=== PATIENT | male | born 1995 | race American Indian/Alaskan Native ===

== ENCOUNTER 2016-08-15 13:21 | Emergency (ER) | payer MEDICAID, OTHER ==
--- NOTE | 2016-08-15 17:46 | Emergency Department Report ---
HPI - General Chief Complaint: Eye Problems Time Seen by Provider: 08/15/16 17:01 - HPI HPI: 20-year-old male presents today with blurred vision of left eye since yesterday. Patient states that he was hit by another player's hands to his left eyebrow playing basketball yesterday. Positive for minimal tearing. Denies any pain, foreign body sensation or discharge. Patient states that he usually wears contact lenses but does not have his eyeglasses or contact lenses at this time. Denies fever, chills, nausea, vomiting, chest pain, shortness of breath, abdominal pain. ED Past Medical Hx - Past Medical History Previous Medical History?: No - Surgical History Past Surgical History?: No - Social History Smoking Status: Never Smoker Substance Use Type: None - Medications Home Medications: Home Medications Medication Instructions Recorded Confirmed Last Taken Type Folic Acid [Folvite] 1 mg PO QDAY 08/15/16 08/15/16 Unknown History ED Review of Systems ROS: Stated complaint: HIT WITH BASEBALL, BLURRED VISION Other details as noted in HPI Constitutional: denies: chills, fever, malaise Eyes: vision change. denies: eye pain, eye discharge ENT: denies: ear pain, throat pain, congestion Respiratory: denies: cough, shortness of breath, wheezing Cardiovascular: denies: chest pain, palpitations Endocrine: no symptoms reported Gastrointestinal: denies: abdominal pain, nausea, vomiting Neurological: denies: headache, weakness Physical Exam - Physical Exam Vital Signs: Vital Signs 08/15/16 13:49 Temperature 98.5 F Pulse Rate 63 Respiratory 20 Rate Blood Pressure 105/63 O2 Sat by Pulse 99 Oximetry Physical Exam: GENERAL: The patient is well-developed and well-nourished. Patient is in NAD. HEAD: Normocephalic. Atraumatic. EYES: Extraocular motions are intact, PERRL. No pain with extraocular motion. No conjunctival injection. No tearing or drainage. No periorbital erythema, tenderness or edema. No change in pressure noted. NOSE: Normal nasal mucosa with no nasal discharge. THROAT: No erythema, swelling or exudates. NECK: Supple, nontender, without lymphadenopathy. No meningitic signs are noted. CHEST/LUNGS: Clear to auscultation throughout. HEART/CARDIOVASCULAR: Regular rate and rhythm. No murmurs, rubs or gallops. ABDOMEN: Abdomen is soft, nontender. Bowel sounds normoactive. No guarding or rebound tenderness. EXTREMITIES: Peripheral pulses intact. Capillary refill less than 2 seconds. NEURO: Alert and oriented x 3. Normal gait. VISUAL ACUITY Right: 20/20 Left: 20/40 Bilateral: 20/20 ED Course Vital Signs 08/15/16 13:49 Temperature 98.5 F Pulse Rate 63 Respiratory 20 Rate Blood Pressure 105/63 O2 Sat by Pulse 99 Oximetry ED Medical Decision Making - Lab Data Vital Signs 08/15/16 13:49 Temperature 98.5 F Pulse Rate 63 Respiratory 20 Rate Blood Pressure 105/63 O2 Sat by Pulse 99 Oximetry - Medical Decision Making 20-year-old male presents today with blurred vision of left eye post injury yesterday. His eye exam is unremarkable. 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 Patient is in no acute distress at this time. He will be discharged home and is encouraged to follow up with a primary care provider. He is encouraged to return to the emergency room for any worsening symptoms. Critical care attestation.: If time is entered above; I have spent that time in minutes in the direct care of this critically ill patient, excluding procedure time. ED Disposition Clinical Impression: Vision changes Disposition: DISCHARGED TO HOME OR SELFCARE Is pt being admited?: No Does the pt Need Aspirin: No Condition: Stable Instructions: Blurred Vision (ED) Additional Instructions: Follow-up with primary care provider and ton cylinder inspector. Return to the emergency department if symptoms worsen. Referrals: MELODY ABEBE MD [Primary Care Provider] - 3-5 Days FORTINO PEREZ MD [Staff Physician] - 3-5 Days Forms: Work/School Release Form(ED), Accompanied Note Time of Disposition: 17:47
[2016-08-15 17:59] VITALS: BP 108/70
== END 2016-08-15 17:58 | disposition home or self-care (01) ==
LOC: ED 13:21
DX: H53.8 Other visual disturbances (principal); W22.8XXA Striking against or struck by other objects, initial encounter; Y93.67 Activity, basketball; Y92.39 Other specified sports and athletic area as the place of occurrence of the external cause; Y99.9 Unspecified external cause status
CPT/HCPCS: 99282

== ENCOUNTER 2017-04-21 12:13 | Emergency (ER) | payer MEDICARE ==
[2017-04-21] MEDS ORDERED: ZOFRAN ODT ONE (12:41)
[2017-04-21] MEDS: ZOFRAN ODT PO ONE ×2 (12:46→12:47)
[2017-04-21 13:30] LABS: Hematocrit 40.8 % (35.5-45.6); Hemoglobin 13.7 gm/dl (11.8-15.2); Mean Corpuscular HGB Conc 34 % (32-34); Mean Corpuscular Hemoglobin 32 pg (28-32); Mean Corpuscular Volume 94 fl (84-94); Platelet Count 329 K/mm3 (140-440); Red Blood Count 4.32 M/mm3 (3.65-5.03); Reticulocyte % 5.01 % (0.78-2.58); White Blood Count 16.3 K/mm3 (4.5-11.0)
[2017-04-21 13:36] LABS: Anion Gap 19 mmol/L; BUN/Creatinine Ratio 15; Blood Urea Nitrogen 9 mg/dL (9-20); Calcium 9.2 mg/dL (8.4-10.2); Carbon Dioxide 25 mmol/L (22-30); Chloride 100.9 mmol/L (98-107); Glucose 129 mg/dL (75-100); Potassium 4.5 mmol/L (3.6-5.0); Sodium 140 mmol/L (137-145)
[2017-04-21] MEDS ORDERED: ZOFRAN ONE (16:00)
[2017-04-21] MEDS ORDERED: NACL 0.9% 1000 ML 1,000 ML ONE (16:00)
[2017-04-21 16:02] LABS: Basophils % (Manual) 0 % (0.0-1.8); Blastocytes % (Manual) 0 %; Eosinophils % (Manual) 0 % (0.0-4.3)
[2017-04-21 16:03] LABS: Anisocytosis 1+; Macrocytosis 1+
[2017-04-21 16:04] LABS: Diff Status Complete; Elliptocytes Few; Platelet Estimate Consistent w Auto; Target Cells 1+
[2017-04-21] MEDS ORDERED: NACL 0.9% 1000 ML 1,000 ML IV ONE (16:06)
[2017-04-21] MEDS ORDERED: ZOFRAN IV ONE (16:06)
[2017-04-21] MEDS ORDERED: TORADOL IV ONE (16:19)
--- NOTE | 2017-04-21 16:23 | Emergency Department Report ---
ED Abdominal Pain HPI - General Chief Complaint: Nausea/Vomiting/Diarrhea Stated Complaint: VOMITING/DIARRHEA Time Seen by Provider: 04/21/17 16:16 Source: patient Mode of arrival: Ambulatory Limitations: No Limitations - History of Present Illness Initial Comments: Patient is 21 years old male history of sickle cell disease came today with nausea vomiting and diarrhea started this morning. Patient stated that he ate at [employer] last night and he woke up with nausea vomiting and watery diarrhea. Patient denied any fever. He stated that he has a cramping abdominal pain. No urinary symptoms. MD Complaint: abdominal pain -: Last night Location: diffuse Radiation: none Migration to: no migration Severity scale (0 -10): 6 Quality: cramping Improves With: vomiting Worsens With: eating Associated Symptoms: nausea, vomiting, diarrhea - Related Data Home Medications Medication Instructions Recorded Confirmed Last Taken Folic Acid [Folvite] 1 mg PO QDAY 08/15/16 08/15/16 Unknown Allergies Allergy/AdvReac Type Severity Reaction Status Date / Time No Known Allergies Allergy Verified 04/21/17 12:23 ED Review of Systems ROS: Stated complaint: VOMITING/DIARRHEA Other details as noted in HPI Comment: All other systems reviewed and negative Constitutional: denies: chills, fever Respiratory: denies: cough, orthopnea, shortness of breath, SOB with exertion Cardiovascular: denies: chest pain Gastrointestinal: abdominal pain, nausea, vomiting, diarrhea. denies: constipation, hematemesis, melena, hematochezia Genitourinary: denies: urgency Neurological: denies: headache ED Past Medical Hx - Past Medical History Hx Sickle Cell Disease: Yes - Surgical History Past Surgical History?: Yes Additional Surgical History: Knee surgery - Social History Smoking Status: Never Smoker Substance Use Type: None - Medications Home Medications: Home Medications Medication Instructions Recorded Confirmed Last Taken Type Folic Acid [Folvite] 1 mg PO QDAY 08/15/16 08/15/16 Unknown History ED Physical Exam - General Limitations: No Limitations General appearance: alert, in no apparent distress - Head Head exam: Present: atraumatic, normocephalic - ENT ENT exam: Present: mucous membranes dry - Neck Neck exam: Present: normal inspection, full ROM. Absent: meningismus, lymphadenopathy - Respiratory Respiratory exam: Present: normal lung sounds bilaterally. Absent: wheezes, rales - Cardiovascular Cardiovascular Exam: Present: regular rate, normal rhythm, normal heart sounds - GI/Abdominal GI/Abdominal exam: Present: soft, tenderness (diffuse tenderness), normal bowel sounds. Absent: distended, guarding, rebound, rigid, organomegaly, mass, bruit , pulsatile mass, hernia - Extremities Exam Extremities exam: Present: normal inspection - Back Exam Back exam: Present: normal inspection - Neurological Exam Neurological exam: Present: alert, oriented X3, CN II-XII intact - Psychiatric Psychiatric exam: Present: normal affect - Skin Skin exam: Present: dry, intact ED Course Vital Signs 04/21/17 04/21/17 12:23 15:47 Temperature 97.9 F Pulse Rate 61 59 L Respiratory 13 Rate Blood Pressure 116/66 O2 Sat by Pulse 100 Oximetry - Reevaluation(s) Reevaluation #1: 04/21/17 18:06 Patient stated that he is feeling much better, his abdominal pain is almost resolved no more nausea no vomiting. ED Medical Decision Making - Lab Data Result diagrams: 04/21/17 12:50 04/21/17 12:50 Critical care attestation.: If time is entered above; I have spent that time in minutes in the direct care of this critically ill patient, excluding procedure time. ED Disposition Clinical Impression: Abdominal pain, Gastroenteritis Disposition: DC-01 TO HOME OR SELFCARE Is pt being admited?: No Condition: Stable Instructions: Abdominal Pain (ED), Gastroenteritis (ED) Referrals: PRIMARY CARE,MD [Primary Care Provider] - 3-5 Days
[2017-04-21] MEDS ORDERED: ROCEPHIN/NS 1 GM/50 ML 1 GM/50 ML BAG IV ONE (17:00)
[2017-04-21] MEDS ORDERED: DILAUDID IV ONE (18:06)
[2017-04-21 18:52] VITALS: BP 109/55
== END 2017-04-21 19:05 | disposition home or self-care (01) ==
LOC: ED 12:13
DX: K52.9 Noninfective gastroenteritis and colitis, unspecified (principal); R10.84 Generalized abdominal pain
CPT/HCPCS: 36415; 80048; 85007; 85025; 85045; 96361; 96365; 96375; 99283; J0696; J1170; J1885; J2405; J7030; Q0162